=== PATIENT | male | born 1950 | race Caucasian/White ===

== ENCOUNTER 2022-01-18 08:28 | Outpatient (CLI) | payer MEDICARE, OTHER | END 2022-01-18 08:29 | disposition home or self-care (01) | LOC: BICMAMMO 08:28 | PROVIDERS: ATTEND Family Medicine | DX: N63.10 Unspecified lump in the right breast, unspecified quadrant (principal) | CPT/HCPCS: 77066; G0279 ==

== ENCOUNTER 2024-02-03 07:48 | Outpatient (CLI) | payer MEDICARE, OTHER | END 2024-02-03 07:49 | disposition home or self-care (01) | LOC: BICMRI 07:48 | PROVIDERS: ATTEND Ophthalmology | DX: T79.9XXA Unspecified early complication of trauma, initial encounter (principal); M19.071 Primary osteoarthritis, right ankle and foot; R60.0 Localized edema ==